=== PATIENT | male | born 1965 | race Caucasian/White ===

== ENCOUNTER 2021-09-13 08:59 | Emergency (ER) | payer OTHER, SELFPAY ==
--- NOTE | ~2021-09-13 | XR_ITS ---
XR pelvis 1-2V DATE: 09/13/2021 09:18 INDICATION: 8 foot fall. Pelvic injury. TECHNIQUE: AP pelvis COMPARISON: None FINDINGS: Transitional lumbosacral vertebra. The pubic symphysis and sacral iliac joints are normally aligned. No pelvic fracture or bone destruction is detected. Hip joint spaces appear symmetric and r elatively preserved. IMPRESSION: No pelvic fracture is detected Reviewed, dictated and finalized at location A.
--- NOTE | ~2021-09-13 | CT_ITS ---
EXAMINATION: CT cervical spine wo con DATE: 09/13/2021 09:15 INDICATION: Head and neck injury due to fall from a ladder. Confusion. TECHNIQUE: Computed tomography (CT) of the cervical spine was performed without intravenous contrast. Automated exposure control and iterative reconstruction technique were employed. Exam dose: 507.87 mGy-cm total exam DLP. COMPARISON: None FINDINGS: C1 and C2 are normally aligned and the odontoid process is intact. No fracture or dislocation, locked facet or prevertebral soft tissue swelling. There is mild degenerative disc disease at C2-3, C3-4, C4-5. Moderately severe degenerative disc disease with prominent posterior spurring at C5-6. Moderate degenerative disc disease at C6-7, with posterior spurring. There is degenerative change at the apophyseal joints throughout the cervical spine. Prominent uncove rtebral joint spurring on the right at C5-6 and to a lesser extent on the left at this same level. Mi ld uncovertebral joint spurring is noted elsewhere in the mid and lower cervical spine.. IMPRESSION: Cervical spondylosis; no fracture or dislocation or locked facet Reviewed, dictated and finalized at [facility]. Reviewed, dictated and finalized at location A.
--- NOTE | ~2021-09-13 | CT_ITS ---
EXAMINATION: CT brain wo con DATE: 09/13/2021 09:14 INDICATION: Head trauma. Patient fell from ladder. Confusion. Hypertension. TECHNIQUE: Computed tomography (CT) of the head was performed without intravenous contrast. The mA wa s adjusted according to patient size. Iterative reconstruction technique was employed. Exam dose: 68 1.00 mGy-cm total exam DLP. COMPARISON: None FINDINGS: No intracranial mass lesion or hemorrhage or cerebrovascular accident. No midline shift or mass effect. Normal ventricular size. No subdural or epidural hematoma is detected. Mild soft tissue thickening in the posterior left sphenoid sinus. Included paranasal sinuses and mast oid air cells are otherwise unremarkable. No fracture or bone destruction of the cranial vault. IMPRESSION: No acute intracranial abnormality or skull fracture Reviewed, dictated and finalized at [facility]. Reviewed, dictated and finalized at location A.
--- NOTE | ~2021-09-13 | XR_ITS ---
XR chest 1V portable DATE: 09/13/2021 09:18 INDICATION: 8 foot fall from ladder TECHNIQUE: Portable supine AP views of the chest on 09/13/2021 at 0913 hours COMPARISON: None FINDINGS: Normal heart size. No hilar or mediastinal enlargement. No pulmonary infiltrate or consolid ation, pleural effusion or pulmonary vascular congestion or pneumothorax. Included skeletal structure s are unremarkable other than degenerative change of the cervical spine.. IMPRESSION: No active cardiopulmonary disease Reviewed, dictated and finalized at location A.
[2021-09-13 08:59] VITALS: BP 121/84; PULSE 80; RESP 20; TEMP 36.4; O2SAT 98
--- NOTE | 2021-09-13 09:01 | ED.HEATRA ---
HPI - Head Injury General Chief complaint: Head Injury Stated complaint: Fall 8 Ft Ladder History of Present Illness HPI Narrative: pt fell 8ft ladder loc confused repetitive questioning h./o MS no c/o pain working on roof no other neuro issues no neck or back pain no cp/sob/abd pain/nv/d. cant tell me when last ate or allergies due to confusion Related Data Allergies Allergy/AdvReac Type Severity Reaction Status Date / Time No Known Allergies Allergy Verified 09/13/21 09:19 Review of Systems Constitutional: Comments: CONSTITUTIONAL: Denies fever, chills, or sweats. EYES: Denies visual changes, redness, or discharge. ENT: Denies rhinorrhea, congestion, sore throat, or otalgia. CARDIOVASCULAR: Denies chest pain, palpitations, or edema. RESPIRATORY: Denies cough or dyspnea. GASTROINTESTINAL: Denies abdominal pain, nausea, vomiting, or diarrhea. GENITOURINARY: Denies dysuria or hematuria. SKIN: Denies rash or itching. MUSCULOSKELETAL: Denies back pain, joint pain, or myalgia. NEUROLOGIC: Denies headache, numbness, or weakness. PSYCHIATRIC: Denies anxiety or depression. Exam Const: Other: APPEARANCE: Well appearing, no pain in distress, well-nourished. Head normocephalic atraumtaic. EYES: PERRLA/EOMI, conjunctivae very clear. NOSE: Normal no drainage EARS:TMS clear Frederick Delgado, with good light reflex. THROAT: Pharynx clear, no exudate. NECK: Supple. No adenopathy, no masses. RESPIRATORY: Airway patent, repsirations nonlabored. Clear to auscultation bilaterally, no rales, rhonchi, wheezing. CARDIOVASCULAR: Regular rate and rhythm without murmurs rubs or gallops. ABDOMINAL: Soft, nontender, nondistended, no hepatosplenomegally MUSCULOSKELETAl: Moves all extremities. Strenght/ROM intact, No edema, No calf tenderness. stable pelvis NEURO: Alert. Cranial nerves II through XII intact. moving all ext knows self and social but keeps asking if passed out, if at [place] even though just told me he is at [place] and thinks he passed out. 5/5 s/s. collar in place GSC 14 SKIN:: Warm, dry. Normal Color PSYCHIATRIC: Normal affect/mood, normal interaction with parents. Course Course Emergency Course: talking with [facility] [address] Santamaria accepts to [facility] at 0915 will get helicopter here family to room updated no allergies and only MS history [facility] coming in 11min at 0930 Vital Signs Vital signs: Vital Signs Temperature 36.4 C L 09/13/21 08:59 Pulse Rate 80 09/13/21 08:59 Respiratory Rate 20 09/13/21 08:59 Blood Pressure 121/84 09/13/21 08:59 Pulse Oximetry 98 09/13/21 08:59 Oxygen Delivery Room Air 09/13/21 08:59 Temperature 36.4 C L 09/13/21 08:59 Pulse Rate 80 09/13/21 08:59 Respiratory Rate 20 09/13/21 08:59 Blood Pressure 121/84 09/13/21 08:59 Pulse Oximetry 98 09/13/21 09:07 Oxygen Delivery Room Air 09/13/21 09:07 MDM - Head Injury Imaging Data Radiologist's impression: Impressions Head CT 09/13/21 09:23 IMPRESSION: No acute intracranial abnormality or skull fracture Critical Care Time Critical Care Time Critical Care Time: Yes (trauma) Total Critical Care Time: 31 Discharge Plan Discharge Clinical Impression: Fall on and from ladder causing accidental injury, Head injury, closed, with LOC of unknown duration Patient Disposition: Acute Care Hospital Condition: Serious Follow-up/Referrals: PHYSICIAN NOT ON STAFF,NONSTAFF [Primary Care Provider] -
[2021-09-13 09:07] VITALS: O2SAT 98
[2021-09-13] MEDS: SODIUM CHLORIDE 0.9% IV 1,000 ML 999 ML IV CONT (09:20)
--- NOTE | 2021-09-13 09:28 | PC.NURSE ---
[facility] -ED DR PEARSON ACCEPTING RN TO RN REPORT GIVEN TO LEX, METAL GRADER
--- NOTE | 2021-09-13 09:32 | PC.NURSE ---
[id number] declined transfer to [facility] accepted transfer to [facility] ETA 11min
[2021-09-13 09:36] LABS: Basophils Percent Auto 0.4 % (0.2-1.2); Eosinophils Absolute Auto 0.1 K/mm3 (0-0.3); Eosinophils Percent Auto 1.8 % (0-4.4); Hematocrit 40.6 % (42.0-52.0); Hemoglobin 14.1 g/dL (14.0-18.0); Immature Granulocyte Absolute 0.01 K/mm3 (0.00-0.031); Immature Granulocyte Percent A 0.2 % (0-0.5); Lymphocytes Absolute Auto 0.68 K/mm3 (0.9-3.2); Lymphocytes Percent Auto 15.1 % (18.3-44.2); Mean Corpuscular HGB Conc 34.7 g/dl (32-36); Mean Corpuscular Hemoglobin 30.5 pg (26-34); Mean Corpuscular Volume 87.7 fl (80-100); Mean Platelet Volume 10.4 fl (7.4-10.4); Monocytes Absolute Auto 0.6 K/mm3 (0.1-0.6); Monocytes Percent Auto 14.3 % (2.6-8.5); Neutrophils Absolute Auto 3.1 K/mm3 (1.3-6.7); Neutrophils Percent Auto 68.2 % (45.5-73.1); Platelet Count Result 217 k/mm3 (150-375); Red Blood Count 4.63 M/mm3 (4.6-6.20); Red Cell Distribution Width 13.3 % (11.5-14.5); White Blood Count 4.5 K/mm3 (4.5-10.0)
[2021-09-13 09:48] LABS: Ethanol < 10 mg/dL (<10); INR 1.1; Partial Thromboplastin Time 22.2 SECONDS (22.3-36.8); Prothrombin Time 13.5 Seconds (11.1-14.7)
[2021-09-13 09:50] LABS: Alanine Aminotransferase 56 U/L (6-50); Albumin Level 4.7 g/dL (3.5-5.1); Alkaline Phosphatase 51 U/L (38-126); Anion Gap 6 mmol/L (8-16); Aspartate Amino Transferase 36 U/L (17-59); Bilirubin,Total 0.7 mg/dL (0.2-1.3); Blood Urea Nitrogen 20 mg/dL (9-20); Calcium 9.1 mg/dL (8.4-10.2); Carbon Dioxide 27 mmol/L (22-30); Chloride 106 mmol/L (98-107); Estimated CRCL calculation 70 ml/min; Estimated Glomerular Filt Rate > 60; Glucose 103 mg/dL (65-110); Potassium 4.5 mmol/L (3.4-5.0); Sodium 139 mmol/L (137-145)
--- NOTE | 2021-09-13 09:50 | PC.NURSE ---
RN REPORT GIVEN TO ASTER BAL
--- NOTE | 2021-09-13 09:52 | PC.NURSE ---
ns infusing into left ac at time of transfer.
== END 2021-09-13 09:53 | disposition short-term general hospital (02) ==
PROVIDERS: Emergency Provider Emergency Medicine
DX: S06.9X9A Unspecified intracranial injury with loss of consciousness of unspecified duration, initial encounter (principal); M47.812 Spondylosis without myelopathy or radiculopathy, cervical region; W11.XXXA Fall on and from ladder, initial encounter
CPT/HCPCS: 36415; 70450; 71045; 72125; 72170; 80053; 80307; 85025; 85610; 85730; 99285; J7030